=== PATIENT | male | born 1950 | race Caucasian/White ===

== ENCOUNTER 2021-09-05 10:30 | Outpatient (CLI) | payer MEDICARE, BC ==
[2021-09-05 23:31] LABS: SARS-CoV-2 PCR by NAA Not Detected (NotDetected)
== END 2021-09-05 10:31 | disposition home or self-care (01) ==
LOC: CSHLAB 10:30
PROVIDERS: ATTEND Internal Medicine Gastroenterology
DX: Z20.822 Contact with and (suspected) exposure to COVID-19 (principal)
CPT/HCPCS: U0003; U0005

== ENCOUNTER 2021-09-08 05:50 | Day surgery (SDC) | payer MEDICARE, BC ==
[2021-09-06 13:36] VITALS: BMI 41.8
[2021-09-08] MEDS ORDERED: PROPOFOL 60 ML ONE (07:07)
[2021-09-08] MEDS ORDERED: Lidocaine 1% PF 5 ML VIAL ONE (07:07)
[2021-09-08] MEDS ORDERED: Lidocaine 1% MPF 2 ML VIAL ONE (07:18)
== END 2021-09-08 09:46 | disposition home or self-care (01) ==
LOC: CSHSDC 05:50
PROVIDERS: ATTEND Internal Medicine Gastroenterology
PROC: 0DBN8ZZ Excision of Sigmoid Colon, Via Natural or Artificial Opening Endoscopic (ICD-10-PCS; principal; 2021-09-08)
DX: Z12.11 Encounter for screening for malignant neoplasm of colon (principal); K63.5 Polyp of colon; K57.30 Diverticulosis of large intestine without perforation or abscess without bleeding; K64.9 Unspecified hemorrhoids; I10 Essential (primary) hypertension; E78.5 Hyperlipidemia, unspecified; D75.1 Secondary polycythemia; J45.909 Unspecified asthma, uncomplicated; Z86.711 Personal history of pulmonary embolism; Z79.01 Long term (current) use of anticoagulants
CPT/HCPCS: 88305; J2704